=== PATIENT | female | born 1950 | race Caucasian/White ===

== ENCOUNTER 2017-09-13 22:31 | Inpatient (IN) | payer MEDICARE, OTHER ==
[~2017-09-13] VITALS: Ht 162.6 cm; Wt 58.4 kg
--- NOTE | ~2017-09-13 | DS ---
PATIENT:ILIANA MCDERMOTT :50 MEDICAL RECORD: [id number] DISCHARGE SUMMARY ADMISSION DATE: 09/13/17 DISCHARGE DATE: 09/15/17 IDENTIFYING DATA: The patient is 66 years old and she was admitted to the hospital on a voluntary basis. The patient went to see her primary care doctor at [facility] and expressed a high degree of distress and some suicidal thoughts. The primary care doctor took her to the Emergency Room at [facility], where she indicated to staff that she was upset and wanted to kill herself by running her car in the garage with the door closed. The patient was admitted to the hospital and then seen the next day for followup. HOSPITAL COURSE: The patient indicated that she really did not mean what she said that she was just upset. She gives a long string or series of events related to the of her and the ongoing frustrations with various issues that come up. She denies that she would seek to harm herself and wanted to be discharged. She had a minor change in her medications and after 2 days it was sufficiently clear that she was not actively suicidal and that there was some significant situational or acute stressors. She had never tried to hurt herself even though she had been treated in the past for depression. DISCHARGE DIAGNOSES: AXIS I: Major depression, moderate severity, recurrent without psychotic features. 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 AXIS III: Hyperlipidemia. AXIS IV: Moderate stressors. AXIS V: Global assessment of functioning is 55. PLAN: At the time of discharge, the patient was not acutely dangerous to herself or others. She was tolerating her medications well. Her long-term prognosis is guarded. She was discharged at her request. Followup is to be with the outpatient geriatric counseling program and Dr. Mercedes Jewell. TRANSINT:[id number] Voice Confirmation ID: [id number] DOCUMENT ID: [id number] ASHLEY ELISE MD at 1315 CC: [id number] DICTATION DATE: 09/19/17 1408 TRAVELING ENGINEER: 09/19/17 1429 DIS IN 09/15/17 [place] [address]
--- NOTE | ~2017-09-13 | PN ---
PATIENT:ILIANA MCDERMOTT MEDICAL RECORD: [id number] LOCATION:[facility] ADMISSION DATE: 09/13/17 PROGRESS NOTE DATE OF SERVICE: 09/15/2017 SUBJECTIVE: The patient's case was discussed with staff. She has no new complaint. OBJECTIVE: The patient has a completely euthymic mood and is fully oriented. She slept 8 hours last night and ate 100% of her meals. She has found a novel on the [employer], and since I was here yesterday, has read 250 pages. She tells me that she does not want to hurt herself and that she would like to be discharged. ASSESSMENT: No change in diagnoses. PLAN: The patient will be discharged today. Follow up will be with an outpatient psychiatrist here in [place]. She has been given the number of 2 different psychiatrists here. She is also going to be referred to the outpatient geriatric counseling program at [facility]. The patient has some very evident deficiencies in her coping skills and some of the dramatic ways that she has been interacting with the staff and the drama that brought her here is characteristic of personality disorder and not a major depression. Nevertheless, I am going to give her antidepressant medication and will not change the diagnosis of major depression, although there certainly is a significant axis II component to her overall situation. TRANSINT:[id number] Voice Confirmation ID: [id number] DOCUMENT ID: [id number] ASHLEY ELISE MD at 0742 CC: [id number] DICTATION DATE: 09/15/17 1457 HARVESTER OPERATOR: 09/15/17 1559 DIS IN 09/15/17 [facility] [address] [place] [address]
--- NOTE | ~2017-09-13 | HP ---
PATIENT: ILIANA MCDERMOTT MEDICAL RECORD: [id number] ACCOUNT: [id number] LOCATION:[id number] : 50 ADMISSION DATE: 09/13/17 HISTORY AND PHYSICAL EXAMINATION IDENTIFYING DATA: The patient is 66 years old and she is admitted to the hospital on a voluntary basis. CHIEF COMPLAINT: "I am just very upset." HISTORY OF PRESENT ILLNESS: The patient went to see her primary care doctor at [facility] yesterday. She expressed a high degree of distress and was taken directly from the primary care physician's office to the Emergency Room at [facility] where she indicated to the staff there that she was depressed, upset and wanted to kill herself by running her car in her garage with the door closed. The patient tells me now that she is just upset and that even when she said this last night, she really did not mean it. She tells me that her in March and associated with his and settling his estate there have been many stressors and that she has 2 children who also have caused her a number of difficulties. She is frustrated and endorses numerous neurovegetative depressive symptoms. She tells me that she does not want to kill herself and that she has never tried to kill herself. She denies substance abuse issues and she denies psychotic symptoms. PAST MEDICAL HISTORY: Significant for hyperlipidemia and gastroesophageal reflux disease. PAST PSYCHIATRIC HISTORY: Significant for longstanding problems with depression. The patient has been treated on an outpatient basis by either a psychiatrist or her primary care physician for a long time. She has been taking Prozac at a dose of 40 mg daily for more than 30 years and intermittently it has not worked, but what she is describing to me sounds very much like situational upset that caused some breakthrough depressive symptoms. Obviously, she has been under a great deal of stress this year with the of her and other ongoing problems, but she has been taking her Prozac. She just feels that it does not work and would like to change to something else. She strongly denies substance abuse problems and very strongly denies that she would want to hurt herself or others. FAMILY HISTORY: Significant for depression with several first degree and second-degree relative having serious psychiatric issues. ALLERGIES: No known drug allergies. CURRENT MEDICATIONS: include calcium, trazodone, Prozac, and Zocor. SOCIAL HISTORY: The patient is and has 2 adult children. She is retired and lives in [place] alone. She does enjoy reading and golf, and has been participating those activities even up into this week. She has a history of reasonably good social and occupational functioning. MENTAL STATUS EXAMINATION: The patient is awake, alert and oriented to person, place, time and situation. Her mood is depressed. Her affect is constricted. Thought processes are circumstantial. Memory, concentration, and abstraction abilities are intact. She denies any active intent to harm herself or others as HISTORY AND PHYSICAL [id number] ILIANA MCDERMOTT well as psychotic symptoms. ASSETS: Stable living environment. LIABILITIES: Limited insight. DIAGNOSTIC IMPRESSION: AXIS I: Major depression, moderate severity, recurrent without psychotic features. AXIS II: Cluster B personality traits with significant histrionic properties. AXIS III: Hyperlipidemia. AXIS IV: Moderate stressors. AXIS V: Global assessment of functioning is 50. PLAN: At this time, the patient is presenting to the hospital having made some fairly dramatic statements to her primary care physician and the Emergency Room doctor, but now is retracting them. She does not have a history of self-harm and has never been hospitalized for psychiatric reasons even though she has had extensive outpatient treatment. Most of the past 30 years, she has not seen a psychiatrist, but has simply taken the 40 mg of Prozac daily from her primary care physician. She is very interested in counseling and is part of her aftercare plan. I am going to refer her to the intensive outpatient program at [facility]. At this point, I am going to stop the Prozac at her request and start her on another antidepressant. She says that Cymbalta worked well for her briefly during the past 30 years, but that she only took it for a few weeks because it was too expensive, and so given this information, I will use a closely related compound Effexor. She wanted to go home today. I told her, I did not think that was a good idea, but did not tell her I would commit her and she agreed to stay. She does not currently meet involuntary commitment regulations or criteria, but she did agree to stay and I am going to try to help her with her depression and make sure she has appropriate outpatient followup. I think her long-term prognosis is guarded. I suspect she has had a fairly lifelong history of poor coping skills with some dramatic ways of interacting with her environment. I am optimistic about her not hurting herself given that she never has tried to do so before and is willing to go to outpatient therapy. TRANSINT:[id number] Voice Confirmation ID: [id number] DOCUMENT ID: [id number] ASHLEY ELISE MD at 1223 CC: [id number] DICTATION DATE: 09/14/17 1413 SOFTBALL COACH: 09/14/17 1448 ADM IN [facility] [address] [place] [id number]
[2017-09-14] MEDS ORDERED: LOMOTIL TABLET1 TAB PO (01:07)
[2017-09-14] MEDS ORDERED: ENTOCORT EC3 MG PO (01:08)
[2017-09-14] MEDS ORDERED: RESTORIL15 MG PO (01:09)
[2017-09-14] MEDS ORDERED: MYRBETRIQ50 MG PO (01:09)
[2017-09-14] MEDS ORDERED: PROZAC40 MG PO (01:10)
[2017-09-14] MEDS ORDERED: ZOCOR20 MG PO (01:10)
[2017-09-14] MEDS ORDERED: DESERYL100 MG PO (01:11)
[2017-09-14] MEDS ORDERED: XALATAN 0.0052.5 ML EACH EYE (01:11)
[2017-09-14] MEDS ORDERED: PEPTO-BISMOL262 M1 PO (01:13)
[2017-09-14] MEDS ORDERED: OS-CAL 500+D TA1 TAB PO (01:18)
[2017-09-14 01:36] VITALS: BP 137/70; BMI 22.1
[2017-09-14 06:49] LABS: BASOPHILS 0 % (0-2); EOSINOPHILS 0.6 % (0-7); HEMATOCRIT 35.9 % (36.0-48.0); IMMATURE GRANULOCYTES 0.2 % (0-5); LYMPHOCYTES 32.8 % (15-50); MCH 29.9 pg (26.0-34.0); MCHC 33.4 g/dL (31.0-37.0); MCV 89.3 fL (80.0-100.0); MONOCYTES 12.1 % (2-11); NEUTROPHILS 54.3 % (40-80); PLATELET COUNT 221 10x3/uL (130-400); RBC 4.02 10x6/uL (4.00-5.40); RDW 12.8 % (11.5-14.5); WBC 5.2 10x3/uL (4.8-10.8)
[2017-09-14 07:42] LABS: ALBUMIN 3.4 g/dL (3.4-5.0); ALKALINE PHOSPHATASE 90 U/L (46-116); ALT (SGPT) 30 U/L (10-68); BILIRUBIN - TOTAL 0.34 mg/dL (0.2-1.3); CALC OSMOLALITY 281 mosm/kg (275-300); CALCIUM 8.8 mg/dL (8.5-10.1); CARBON DIOXIDE 29.4 mmol/L (21.0-32.0); CHLORIDE - SERUM 106 mmol/L (98-107); CHOL - HDL RATIO 2.2 ratio (2.3-4.1); CHOLESTEROL, TOTAL 179 mg/dL (0-200); CREATININE - SERUM 0.8 mg/dL (0.6-1.3); GLUCOSE 103 mg/dL (74-106); HDL CHOLESTEROL 80 mg/dL (32-96); LDL CHOLESTEROL 92 mg/dL (0-100); LDL-HDL RATIO 1.2 ratio (1.5-3.5); POTASSIUM - SERUM 4.3 mmol/L (3.5-5.1); PROTEIN - SERUM 7.1 g/dL (6.4-8.2); SODIUM 141 mmol/L (136-145); THYROID STIMULATING HORMONE 3.66 uIU/mL (0.36-3.74); TRIGLYCERIDE 36 mg/dL (30-200); UREA NITROGEN 16 mg/dL (7-18); eGFR NON AFRICAN AMERICAN 76 mL/min (90-120)
[2017-09-14 10:01] LABS: APPEARANCE HAZY (CLEAR); BILIRUBIN NEGATIVE (NEGATIVE); COLOR YELLOW (YELLOW); GLUCOSE NEGATIVE (NEGATIVE); KETONE NEGATIVE (NEGATIVE); NITRITE NEGATIVE (NEGATIVE); PROTEIN NEGATIVE (NEGATIVE); UROBILINOGEN NORMAL (NORMAL)
[2017-09-14 10:47] VITALS: BP 180/86
[2017-09-14 14:23] VITALS: Ht 162.6 cm; Wt 58.4 kg
[2017-09-14 20:26] VITALS: BP 152/68
[2017-09-15 06:16] LABS: RAPID PLASMA REAGIN Non Reactive (Non Reactive)
[2017-09-15 07:33] LABS: VITAMIN D 25 HYDROXY 54.8 ng/mL (30.0-100.0)
[2017-09-15 08:21] LABS: FOLATE (FOLIC ACID) - SERUM >20.0 ng/mL (>3.0)
[2017-09-15 09:55] VITALS: BP 128/74
[2017-09-15] MEDS ORDERED: EFFEXOR50 MG PO (14:58)
== END 2017-09-15 16:25 | disposition home or self-care (01) | DRG 885 ==
LOC: D.PSYCH 22:31
PROVIDERS: Psychiatry & Neurology Psychiatry
DX: F33.1 Major depressive disorder, recurrent, moderate (principal); F60.89 Other specific personality disorders

== ENCOUNTER 2018-05-24 12:58 | Day surgery (SDC) | payer MEDICARE, OTHER ==
[~2018-05-24] VITALS: Ht 162.6 cm; Wt 55.5 kg
[~2018-05-24 12:58] MED LIST: DESERYL100 MG PO; EFFEXOR50 MG PO; ENTOCORT EC3 MG PO; LOMOTIL TABLET1 TAB PO; MYRBETRIQ50 MG PO; OS-CAL 500+D TA1 TAB PO; PEPTO-BISMOL262 M1 PO; PROZAC40 MG PO; RESTORIL15 MG PO; XALATAN 0.0052.5 ML EACH EYE; ZOCOR20 MG PO
[2018-05-24 13:25] LABS: BASOPHILS 0 % (0-2); EOSINOPHILS 0 % (0-7); HEMOGLOBIN 11.5 g/dL (12-16); LYMPHOCYTES 27.1 % (15-50); MCHC 33.8 g/dL (31.0-37.0); MCV 88.8 fL (80.0-100.0); MEAN PLATELET VOLUME 9.8 fL (7.4-10.4); MONOCYTES 9.5 % (2-11); NEUTROPHILS 63.4 % (40-80); PLATELET COUNT 205 10x3/uL (130-400); RBC 3.83 10x6/uL (4.00-5.40); WBC 5.8 10x3/uL (4.8-10.8)
[2018-05-24] MEDS ORDERED: LATANOPROST 0.005% (14:31)
[2018-05-24] MEDS ORDERED: RESTORIL15 MG PO (14:31)
[2018-05-24] MEDS ORDERED: MYRBETRIQ50 MG PO (14:32)
[2018-05-24] MEDS ORDERED: PROZAC40 MG PO (14:33)
[2018-05-24] MEDS ORDERED: PEPTO-BISMOL262 M1 PO ×2 (14:35→14:36)
[2018-05-24 14:41] VITALS: BP 141/66; Ht 162.6 cm; Wt 55.5 kg
--- NOTE | 2018-05-28 11:11 | OP ---
PATIENT NAME: ILIANA IQBAL MEDICAL RECORD: [id number] :50 LOCATION:[facility] ADMISSION DATE: SURGEON: MARIA TERESA RODRIGUEZ MD DATE OF OPERATION: 05/24/2018 PROCEDURE: EGD with push enteroscopy and fecal microbial transplant. INDICATIONS: Ms. Iqbal is a delightful 67-year-old woman with long-standing history of collagenous colitis. Her last colonoscopy was on 02/19/2018 with findings showing mild colonic erythema and biopsies were notable for collagenous colitis (xTAG stool studies were negative). She has been on Entocort taper and is now taking Pepto-Bismol twice a day with modest results. She presents for outpatient fecal microbial transplant. PREMEDICATIONS: Total IV anesthesia (propofol 150 mg). INSTRUMENT: Olympus video colonoscope, pediatric. PROCEDURE AND FINDINGS: After receiving informed consent, Ms. Iqbal' posterior pharynx was anesthetized with Cetacaine spray. She was placed in left lateral decubitus position and sedated as per anesthesia. After achieving an adequate level of sedation, the pediatric colonoscope was introduced orally and advanced into the jejunum without difficulty. The scope was advanced to approximately 130 cm. At 130 cm, 30 cc of fecal microbial transplant was deployed through the scope followed by 60 cc free water flush. Then, the scope was withdrawn. Of note, there was mild prepyloric erythema in the stomach and a small hiatal hernia. Ms. Iqbal tolerated the procedure well. No immediate complications. ASSESSMENT: 1. History of collagenous colitis, status post fecal microbial transplant. 2. Small hiatal hernia. 3. Mild gastritis. RECOMMENDATIONS: Avoid foods that might cause gas or bloating today, i.e., carbonated beverages. TRANSINT:[id number] Voice Confirmation ID: [id number] DOCUMENT ID: [id number] MARIA TERESA RODRIGUEZ MD at 1111 CC: [id number] BOWMAN [id number] DICTATION DATE: 05/24/18 1625 COAT PRESSER: 05/24/18 1853 [facility] 05/24/18 [id number] [place] [address]
== END 2018-05-24 17:15 | disposition home or self-care (01) ==
LOC: D.OPS 12:58
PROVIDERS: ATTEND Internal Medicine Gastroenterology
DX: K52.831 Collagenous colitis (principal); K44.9 Diaphragmatic hernia without obstruction or gangrene; K29.70 Gastritis, unspecified, without bleeding; Z01.812 Encounter for preprocedural laboratory examination

== ENCOUNTER → 2018-06-07 10:12 | Outpatient (CLI) | payer MEDICARE, OTHER ==
[2018-05-24 14:41] VITALS: BMI 21.0
[~2018-06-07 10:12] MED LIST changes: +LATANOPROST 0.005%
== END | disposition home or self-care (01) ==
LOC: D.RAD 10:12
PROVIDERS: ATTEND Internal Medicine Gastroenterology
DX: K59.00 Constipation, unspecified (principal)